=== PATIENT | female | born 1975 | race Caucasian/White ===

== ENCOUNTER 2016-02-11 13:17 | Emergency (ER) | payer OTHER ==
[~2016-02-11] VITALS: Ht 162.6 cm; Wt 110.0 kg
[~2016-02-11 13:17] MED LIST: HYDROCHLOROTHIA25 MG PO; NORVASC5 M1 PO; PAXIL20 MG PO
[2016-02-11 15:47] LABS: HEMATOCRIT 37.8 % (36.0-46.0); MCH 26.7 PG (29.0-34.0); MCHC 33.1 G/DL (30.0-36.0); MCV 80.6 FL (83-99); MEAN PLAT.VOLUME 8.4 uM^3 (9.5-12.4); PLATELET COUNT 312 K/uL (156-360); RBC DIS.WIDTH-CV 13.6 % (11.8-14.6); RBC DIS.WIDTH-SD 38.9 % (39-53); RED BLOOD COUNT 4.69 M/uL (3.80-5.20); WHITE BLOOD COUNT 13.3 K/uL (4.1-10.2)
[2016-02-11 16:00] LABS: CHLORIDE 101 mEq/L (99-109); POTASSIUM 3.3 mEq/L (3.7-5.4); SODIUM 140 mEq/L (136-147)
[2016-02-11 16:02] LABS: GLUCOSE 105 mg/dL (70-99)
[2016-02-11 16:03] LABS: ANION GAP 14 MEQ/L (2-14)
[2016-02-11 16:05] LABS: GFR ESTIMATE (CALCULATED) > 59 mL/min/
[2016-02-11 16:06] LABS: UREA NITROGEN (BUN) 9 mg/dL (9-23)
[2016-02-11 16:13] LABS: QUANTITATIVE HCG < 4.0 MIU/ML
[2016-02-11] MEDS ORDERED: MOBIC15 MG PO (16:44)
[2016-02-11 16:58] VITALS: BP 154/83
== END 2016-02-11 16:59 | disposition home or self-care (01) ==
LOC: EME 13:17
PROVIDERS: Emergency Medicine
DX: N93.9 Abnormal uterine and vaginal bleeding, unspecified (principal); E87.6 Hypokalemia; R73.9 Hyperglycemia, unspecified; D72.829 Elevated white blood cell count, unspecified
CPT/HCPCS: 80048; 84702; 85027; 86850; 86900; 86901; 99281; 99284